=== PATIENT | male | born 1995 | race Caucasian/White ===

== ENCOUNTER → 2018-01-10 | Outpatient (CLI) | payer OTHER, MEDICARE ==
--- NOTE | 2018-01-18 22:44 | CONSULTATION REPORT E ---
Consultation Report NAME: MOISES CADENA : 1995 AGE: 22Y DATE: 01/18/2018 TO: BROOKS ALAMO FROM: HELEN TEJEDA M.D. Requesting Physician MEDICATION: 1. Effexor XL. 2. Depakote ER. 3. Risperidone. 4. Trazodone. 5. Tegretol. HISTORY: This is a 22-year-old adult male with a history of brain injury at , seizures, and narcolepsy. This EEG was requested for epilepsy. EEG INTERPRETATION: This EEG was recorded in the awake and drowsy state, the awake background. The awake background is characterized by a fairly well organized background with a well-developed and reactive posterior dominant rhythm of 9.5 Hz. The remainder of the background is characterized by combination of alpha and beta frequencies. Drowsiness is characterized by slowing of the background rhythm. Vertex waves were briefly seen in the midline head region and were synchronous and symmetric. Stage 2 sleep was not obtained. Photostimulation resulted in a moderate driving response. Hyperventilation resulted in minimal generalized slowing of the background rhythm. There is no epileptiform activity present. EEG IMPRESSION: This is a normal EEG in the awake and drowsy state. No electrographic seizure patterns are present, however, the absence of epileptiform activity does not rule out seizures. DICTATING PHYSICIAN: Brooks Alamo MD [id number] PHY#: [id number] ID: [id number] JOB#: [id number] ACCT: [id number] cc:BROOKS ALAMO >
== END ==
LOC: NEURO 08:50
PROVIDERS: ATTEND Pediatrics
DX: G40.909 Epilepsy, unspecified, not intractable, without status epilepticus (principal); F79 Unspecified intellectual disabilities; F41.9 Anxiety disorder, unspecified
CPT/HCPCS: 95819